=== PATIENT | female | born 1965 | race African-American/Black ===

== ENCOUNTER 2019-04-04 21:59 | Emergency (ER) | payer OTHER ==
[~2019-04-04] VITALS: Ht 154.9 cm; Wt 70.0 kg
[2019-04-04 22:15] VITALS: BP 143/79
[2019-04-04 23:21] LABS: BASOPHILS % 0.8 % (0.0-2.0); EOSINOPHILS % 2.9 % (0.0-5.0); HEMATOCRIT. 36.7 % (36.0-48.0); HEMOGLOBIN. 12.7 g/dL (12.0-16.0); LYMPHOCYTES % 54.5 % (20.0-50.0); MEAN CORPUSCULAR HEMOGLOBIN 30.1 pg (28.0-32.0); MEAN CORPUSCULAR VOLUME 86.6 fL (81.0-99.0); MEAN PLATELET VOLUME 7.7 fl (7.4-10.4); MONOCYTES % 8.4 % (2.0-8.0); NEUTROPHILS % 33.4 % (40.0-76.0); PLATELET 264 x1000/uL (130-400); RED BLOOD CELL COUNT 4.24 mill/uL (4.2-5.4); RED CELL DISTRIBUTION WIDTH 13.5 % (11.6-14.6)
[2019-04-04 23:24] LABS: CHLORIDE 110 mEq/L (98-107)
[2019-04-04 23:33] LABS: T4 FREE 0.89 ng/dL (0.76-1.46)
== END 2019-04-05 00:35 | disposition home or self-care (01) ==
LOC: ER 21:59
DX: F41.9 Anxiety disorder, unspecified (principal); E03.9 Hypothyroidism, unspecified
CPT/HCPCS: 36415; 71045; 83880; 84439; 84443; 84484; 93005; 99284